=== PATIENT | female | born 1975 | race American Indian/Alaskan Native ===

== ENCOUNTER 2017-04-21 06:35 | Emergency (ER) | payer BC ==
[2017-04-21] MEDS ORDERED: NACL 0.9% IR ONE (10:38)
[2017-04-21] MEDS ORDERED: XYLOCAINE 1% 20 mL INFILTRATI ONE (10:38)
[2017-04-21] MEDS ORDERED: TYLENOL PO ONE (10:38)
[2017-04-21] MEDS ORDERED: BOOSTRIX IM ONE (10:38)
--- NOTE | 2017-04-21 10:59 | Emergency Department Report ---
ED General Adult HPI - General Chief complaint: Wound/Laceration Stated complaint: BUSTED LIP DUE TO FALL; DENIES LOC Time Seen by Provider: 04/21/17 10:26 Source: patient Mode of arrival: Ambulatory Limitations: No Limitations - History of Present Illness Initial comments: Patient is a 41-year-old femalewith a past medical history who presents with upper lip pain that has been going on since last night. Patient states that her lip pain is a 3 on a 10 evening makes it worse nothing makes it better. Patient states that she was at [employer] and she was drinking alcohol she said she stumbled and fell 4. Patient states that she did not lose consciousness. She was able to ambulate without any difficulty. Patient denies any injury to her teeth no nausea no vomiting. Patient currently is not employed she states that she drinks alcohol moderately. Severity scale (0 -10): 5 - Related Data Allergies Allergy/AdvReac Type Severity Reaction Status Date / Time No Known Allergies Allergy Unverified 04/21/17 08:12 ED Review of Systems ROS: Stated complaint: BUSTED LIP DUE TO FALL; DENIES LOC Other details as noted in HPI Constitutional: denies: chills, fever Eyes: denies: eye pain, eye discharge, vision change ENT: denies: ear pain, throat pain Respiratory: denies: cough, shortness of breath, wheezing Cardiovascular: denies: chest pain, palpitations Endocrine: no symptoms reported Gastrointestinal: denies: abdominal pain, nausea, diarrhea Genitourinary: denies: urgency, dysuria, discharge Musculoskeletal: denies: back pain, joint swelling, arthralgia Skin: denies: rash, lesions Neurological: denies: headache, weakness, paresthesias Psychiatric: denies: anxiety, depression Hematological/Lymphatic: denies: easy bleeding, easy bruising ED Past Medical Hx - Past Medical History Previous Medical History?: No - Surgical History Past Surgical History?: No - Social History Smoking Status: Never Smoker Substance Use Type: Alcohol ED Physical Exam - General Limitations: No Limitations General appearance: alert, in no apparent distress - Head Head exam: Present: normocephalic, other (1.5 cm vertical cut ) - Eye Eye exam: Present: normal appearance - ENT ENT exam: Present: mucous membranes moist - Neck Neck exam: Present: normal inspection - Respiratory Respiratory exam: Present: normal lung sounds bilaterally. Absent: respiratory distress - Cardiovascular Cardiovascular Exam: Present: regular rate, normal rhythm. Absent: systolic murmur, diastolic murmur, rubs, gallop - GI/Abdominal GI/Abdominal exam: Present: soft, normal bowel sounds - Extremities Exam Extremities exam: Present: normal inspection - Back Exam Back exam: Present: normal inspection - Neurological Exam Neurological exam: Present: alert, oriented X3 - Psychiatric Psychiatric exam: Present: normal affect, normal mood - Skin Skin exam: Present: warm, dry, intact, normal color. Absent: rash ED Course Vital Signs 04/21/17 08:12 Temperature 99.1 F Pulse Rate 99 H Respiratory 18 Rate Blood Pressure 106/75 O2 Sat by Pulse 100 Oximetry - Laceration /Wound Repair Upper Face Wound Location: face (upper lip at the priscila border ) Wound Length (cm): 2 Wound's Depth, Shape: superficial Wound Explored: clean Irrigated w/ Saline (ccs): 30 Betadine Prep?: No Anesthesia: 1% Lidocaine Wound Repaired With: sutures Suture Size/Type: 5:0 Number of Sutures: 2 Layer Closure?: No Sterile Dressing Applied?: No Critical care attestation.: If time is entered above; I have spent that time in minutes in the direct care of this critically ill patient, excluding procedure time. ED Disposition Clinical Impression: Lip laceration Qualifiers: Encounter type: initial encounter Qualified Code(s): S01.511A - Laceration without foreign body of lip, initial encounter Fall Qualifiers: Encounter type: initial encounter Qualified Code(s): W19.XXXA - Unspecified fall, initial encounter Disposition: TO HOME OR SELFCARE Is pt being admited?: No Does the pt Need Aspirin: No Condition: Stable Instructions: Suture Care (ED) Referrals: TIFFANY NELSON MD [Staff Physician] - 3-5 Days
--- NOTE | 2017-04-21 11:00 | Event Note ---
Date: 04/21/17 repair by JEANINE tolerated well
[2017-04-21 11:35] VITALS: BP 117/80
== END 2017-04-21 11:34 | disposition home or self-care (01) ==
LOC: ED 06:35
DX: S01.511A Laceration without foreign body of lip, initial encounter (principal); W18.30XA Fall on same level, unspecified, initial encounter; Y93.89 Activity, other specified; Y92.89 Other specified places as the place of occurrence of the external cause; Y99.8 Other external cause status
CPT/HCPCS: 90471; 90715